=== PATIENT | female | born 1955 | race Caucasian/White ===

== ENCOUNTER → 2016-05-29 | Outpatient (CLI) | payer OTHER ==
[2014-11-04 10:48] VITALS: BP 103/67
[~2016-05-29] MED LIST: CETI10CA12 PO; CYCL5TAB PO; MELO-150 PO
--- NOTE | 2016-05-29 12:43 | KCIC ---
PROCEDURE MRI of the cervical spine without contrast 05/29/2016 HISTORY Chronic neck pain with history of cervical spinal canal stenosis. TECHNIQUE Unenhanced T1 weighted, inversion recovery and T2 weighted sagittal and gradient echo and T2 weighted axial images of the cervical spine were obtained. FINDINGS Comparison study is dated 11/30/2012. Minimal lateral curvature of the cervical spine is seen convex to the right. There is straightening of the normal cervical lordosis. Degenerative signal changes and loss of height are seen involving the C5-6 and C6-7 discs. Degenerative signal changes are seen within the marrow surrounding these discs. The cervical spinal cord is normal in morphology, position, and signal characteristics. The C2-3, C3-4 and C4-5 disc spaces there are minimal to mild generalized disc bulges. Degenerative changes are seen involving the uncovertebral and facet joints bilaterally. These findings do not result in significant central spinal canal or neural foraminal stenosis. At the C5-6 disc space there is mild to moderate generalized disc bulge. Superimposed on this disc bulge is a central/right paracentral disc osteophyte complex. This measures 3 millimeters in AP diameter. Degenerative changes are seen involving the uncovertebral and facet joints, left greater than right. These findings efface the anterior and posterior CSF resulting in mild central spinal canal stenosis without evidence of cord impingement. Mild to moderate left greater than right neural foraminal stenosis is seen. At the C6-7 disc space there is mild to moderate generalized disc bulge. Degenerative changes are seen involving the uncovertebral and facet joints bilaterally. These findings efface the anterior and posterior CSF resulting in very mild central spinal canal stenosis without evidence of cord impingement. Very mild bilateral neural foraminal stenosis is seen. At the C7-T1 disc space there is a minimal generalized disc bulge. Degenerative changes are seen involving the facet joints bilaterally. These findings when combined do not result in significant central spinal canal or neural foraminal stenosis. These degenerative changes have not significantly changed since the previous study. IMPRESSION Degenerative changes are seen throughout the cervical spine. These findings result in very mild central spinal canal stenosis at C6-7 and mild central spinal canal stenosis at C5-6 without evidence of cord impingement. Mild to moderate left greater than right neural foraminal stenosis is seen at C5-6. Very mild bilateral neural foraminal stenosis is seen at C6-7. Electronically signed by: William Londono MD (May 29, 2016 12:42:38)
== END | disposition home or self-care (01) ==
LOC: KCIC MRI 08:02
PROVIDERS: ATTEND Neurological Surgery
DX: M48.02 Spinal stenosis, cervical region (principal); M47.892 Other spondylosis, cervical region; M25.78 Osteophyte, vertebrae; R29.890 Loss of height
CPT/HCPCS: 72141